=== PATIENT | male | born 1955 | race Caucasian/White ===

== ENCOUNTER 2023-01-18 18:30 | Emergency (ER) | payer MEDICARE, MEDICAID, SELFPAY ==
--- NOTE | ~2023-01-18 | CT_ITS ---
EXAMINATION: CT ABDOMEN AND PELVIS WITHOUT CONTRAST CLINICAL INFORMATION: LLQ pain. COMPARISON: No pertinent prior studies are available for comparison. TECHNIQUE: Multidetector volumetric imaging was performed from the superior aspect of the liver through the pubic symphysis without contrast per request. Sagittal and coronal reformatted images were obtained on the technologist workstation. This CT examination was performed using dose optimization techniques as appropriate, variously including the following: *Automated exposure control *Adjustment of mA and/or kV according to patient size (this includes techniques or standardized protocols for targeted exams where dose is matched to indication/reason for exam; i.e. extremities or head) *Use of iterative reconstruction technique DLP: 796 mGy-cm. FINDINGS: LUNG BASES: Minimal dependent atelectasis Pacemaker leads overlying the right atrium and right ventricle LIVER, GALLBLADDER, BILIARY TREE: The non-contrast liver is normal in size, shape, and attenuation. No focal hepatic lesion or biliary ductal dilatation is present. The gallbladder is unremarkable with no evidence of radiopaque gallstones, gallbladder wall thickening, or obvious pericholecystic inflammatory changes. PANCREAS: Unremarkable. SPLEEN: Unremarkable. ADRENAL GLANDS: Unremarkable. KIDNEYS AND URETERS: The kidneys are normal in size, shape, and attenuation. Low-attenuation parapelvic cyst in the lower pole of the right kidney incidentally noted. No hydronephrosis, hydroureter, or calculi seen. No perinephric stranding. BLADDER: Unremarkable. GASTROINTESTINAL TRACT: Scattered colonic diverticulosis but no evidence for diverticulitis. The appendix is not visualized and presumably surgically absent. Visualized small bowel unremarkable ABDOMINAL WALL: No significant hernia is appreciated. LYMPHOVASCULAR STRUCTURES: Prominent vascular calcification within the aorta iliac system. PELVIC VISCERA: Unremarkable. OSSEUS STRUCTURES: Degenerative changes within both hips and visualized spine CT/CT abdomen pelvis wo IV con IMPRESSION: Chronic appearing changes as described above. I do not appreciate any acute intra-abdominal process.
[2023-01-18 18:47] VITALS: BP 105/71; BP 147/93; PULSE 62; PULSE 68; RESP 18; TEMP 36.5; O2SAT 96; O2SAT 98; BMI 33.6
--- NOTE | 2023-01-18 18:51 | ED_ITS ---
HPI - Weakness General Chief complaint: Weakness Stated complaint: LIZY LEG WEAKNESS,GROIN PAIN PER EMS Time Seen by Provider: 01/18/23 18:47 Source: patient Mode of arrival: EMS Limitations: no limitations History of Present Illness HPI Narrative: Patient history of hypertension schizophrenia, CKD brought by EMS for increased weakness apparently patient was outside [place] [facility] [place] was feeling weak bilaterally slumped down unable to get out of the ground complaining of left groin pain without any swelling no nausea no vomiting Related Data Allergies Allergy/AdvReac Type Severity Reaction Status Date / Time No Known Allergies Allergy Verified 01/18/23 19:01 Review of Systems Review of Systems: Yes all other systems are reviewed and are negative [facility] Social History Social History Alcohol intake: never Smoked in Last 30 Days: No Use of substances other than those prescribed or required for medical reasons: No Advance Directives: No Advance Directives Information Provided: No Physical Exam Vital Signs: Vital Signs: Last Vital Signs Temp 97.5 F 01/18/23 21:26 Pulse 65 01/18/23 21:26 Resp 20 01/18/23 21:26 BP 107/70 01/18/23 21:26 Pulse Ox 96 01/18/23 18:47 O2 Del Method Nasal Cannula 01/18/23 21:26 O2 Flow Rate 1 01/18/23 21:26 BMI result Body Mass Index 33.6 Appearance: Alert. Oriented X3. No acute distress. Eyes: PERRLA, No Nystagmus ENT: Pharynx normal. Oral Mucosa moist Neck: Normal inspection. Neck supple. CVS: Normal heart rate and rhythm. Pulses normal. Respiratory: No respiratory distress. Equal air entry bilateral, no wheezing/rales/rhonchi Abdomen: Soft, deep tenderness left lower quadrant. Bowel sounds are present, no mass palpable, no CVA tenderness Skin: Skin warm and dry. Normal skin color. Normal skin turgor. Extremities: No lower extremity edema. No calf tenderness mild tenderness left groin area no hernia palpable Neuro: Oriented X 3. No motor deficit. No sensory deficit.No cerebellar signs , cranial nerves II-XII intact Medications Administered Discontinued Medications Generic Name Dose Route Start Last Admin Trade Name Freq PRN Reason Stop Dose Admin Sodium Chloride 1,000 mls @ 999 mls/hr 01/18/23 22:14 05/08/23 22:32 Ns IV 01/18/23 23:14 999 mls/hr .Q1H1M ONE Administration Sodium Zirconium Cyclosilicate 10 gm 01/18/23 22:14 01/18/23 22:32 Sodium Zirconium Cyclosilicate 10 Gm Powd.Pack PO 01/18/23 22:15 10 gm ONCE ONE Administration Medical Decision Making Medical Decision Making MDM Narrative: Patient with generalized weakness with obesity with multiple comorbid condition lab workup showed potassium 5.5 with creatinine of 1.9 sick patient knows that he has a kidney problem but we do not have the result to compare. Patient at this time does not have any uremic symptoms will give a L of fluid advised to follow with restaurant line cook/PCP Lab Data [facility] Lab Attestation statement: I reviewed the patient's lab results. 01/18/23 19:40 01/18/23 19:57 Labs: Lab Results 01/18/23 01/18/23 Range/Units 19:40 19:57 WBC 6.5 (4.8-10.8) X10*3/uL RBC 3.67 L (4.60-5.80) X10*6/uL Hgb 11.9 L (14.0-18.0) g/dl Hct 36.7 L (42.0-52.0) % MCV 100.0 H (80.0-98.0) fL MCH 32.4 (27.0-33.0) pg MCHC 32.4 (31.0-36.0) g/dl RDW 13.2 (11.0-16.0) % Plt Count 145 L (160-400) X10*3/uL MPV 9.8 (9.4-12.4) fL Immature Gran % (Auto) 0.6 H (0.0-0.4) % Neut % (Auto) 60.8 (45-73) % Lymph % (Auto) 25.9 (20-40) % [place] % (Auto) 10.0 (2-11) % Eos % (Auto) 2.2 (0-4) % Baso % (Auto) 0.5 (0-2) % Lymph # (Auto) 1.7 (1.2-4.9) X10*3/uL [place] # (Auto) 0.7 (0.1-1.2) X10*3/uL Eos # (Auto) 0.1 (0.0-0.4) X10*3/uL Baso # (Auto) 0.0 (0.0-0.2) X10*3/uL Abs Immat Gran (auto) 0.04 H (0.00-0.03) X10*3/uL Absolute Neuts (auto) 4.0 (2.0-8.3) x10*3/uL Absolute Nucleated RBC 0.000 (0.0-0.012) X10*3/uL Nucleated RBC % (auto) 0.0 (0.0-0.2) /100WBC Sodium 142 (135-145) mmol/L Potassium 5.5 H (3.3-5.1) mmol/L Chloride 105 (96-108) mmol/L Carbon Dioxide 31 H (22-29) mmol/L Anion Gap 12 (12-20) BUN 32 H (9-16) mg/dL Creatinine 1.96 H (0.5-1.4) mg/dL Estim Creat Clear Calc 40.8 Estimated GFR 34 Random Glucose 82 (60-115) mg/dL Calcium 9.0 (8.4-10.2) mg/dL Total Bilirubin 0.3 (0.0-1.0) mg/dL AST 22 (5-37) U/L ALT 11 (0-40) U/L Alkaline Phosphatase 76 (39-117) U/L Total Protein 6.4 L (6.5-8.0) g/dL Albumin 3.4 L (3.5-5.0) g/dL Discharge Plan Discharge Clinical Impression: Chronic kidney disease, Weakness Patient Disposition: Home, Self-Care Instructions: Chronic Kidney Disease (ED), Weakness (ED) Additional Instructions: Drink plenty of fluids Follow with a restaurant line cook Avoid food containing potassium like bananas/orange juice as your potassium was slightly elevated today See your PCP within a week
[2023-01-18 19:52] LABS: Eosinophils Absolute Auto 0.1 X10*3/uL (0.0-0.4); PLT CLUMP 1; Red Cell Distribution Width 13.2 % (11.0-16.0); SCAN SMEAR FLAG 1
[2023-01-18 19:54] LABS: Basophils Percent Auto 0.5 % (0-2); Eosinophils Percent Auto 2.2 % (0-4); Hematocrit 36.7 % (42.0-52.0); Hemoglobin 11.9 g/dl (14.0-18.0); Imm Gran Abs Auto 0.04 X10*3/uL (0.00-0.03); Imm Gran Pct Auto 0.6 % (0.0-0.4); Lymphocytes Absolute Auto 1.7 X10*3/uL (1.2-4.9); Lymphocytes Percent Auto 25.9 % (20-40); Mean Corpuscular HGB Conc 32.4 g/dl (31.0-36.0); Mean Corpuscular Hemoglobin 32.4 pg (27.0-33.0); Mean Platelet Volume 9.8 fL (9.4-12.4); Monocytes Absolute Auto 0.7 X10*3/uL (0.1-1.2); Neutrophils Percent Auto 60.8 % (45-73); Red Blood Count 3.67 X10*6/uL (4.60-5.80)
[2023-01-18 20:05] LABS: Platelet Count 145 X10*3/uL (160-400); White Blood Count 6.5 X10*3/uL (4.8-10.8)
[2023-01-18 20:06] LABS: MANUAL DIFF FLAG NO
[2023-01-18 20:27] LABS: Alanine Aminotransferase 11 U/L (0-40); Albumin Level 3.4 g/dL (3.5-5.0); Alkaline Phosphatase 76 U/L (39-117); Anion Gap 12 (12-20); Aspartate Amino Transferase 22 U/L (5-37); Bilirubin Total 0.3 mg/dL (0.0-1.0); Blood Urea Nitrogen 32 mg/dL (9-16); Carbon Dioxide 31 mmol/L (22-29); Chloride 105 mmol/L (96-108); Creatinine Clr Calc Pharmacy 40.8; Estimated Glomerular Filt Rate 34; Glucose Random 82 mg/dL (60-115); Potassium 5.5 mmol/L (3.3-5.1); Sodium 142 mmol/L (135-145); Total Protein 6.4 g/dL (6.5-8.0)
[2023-01-18 21:26] VITALS: BP 107/70; PULSE 65; RESP 20; TEMP 36.4
[2023-01-18] MEDS: Sodium Zirconium Cyclosilicate 10 GM POWD.PACK PO (22:32)
[2023-01-18] MEDS: 0.9 % Sodium Chloride 1,000 ML 999 ML IV (22:32)
[2023-01-19 00:24] VITALS: BP 125/69; PULSE 57; RESP 18; O2SAT 95
== END 2023-01-19 06:08 | disposition home or self-care (01) ==
PROVIDERS: Emergency Provider Internal Medicine; PCP Nurse Practitioner Adult Health
DX: R10.30 Lower abdominal pain, unspecified (principal); R53.1 Weakness; I12.9 Hypertensive chronic kidney disease with stage 1 through stage 4 chronic kidney disease, or unspecified chronic kidney disease; N18.9 Chronic kidney disease, unspecified; Z79.899 Other long term (current) drug therapy
CPT/HCPCS: 36415; 74176; 80053; 85025; 96360; 99284; 99285